=== PATIENT | male | born 1965 | race Caucasian/White ===

== ENCOUNTER 2023-11-25 07:32 | Day surgery (SDC) | payer BC ==
[~2023-11-25] VITALS: Ht 177.8 cm; Wt 103.9 kg
[2023-11-25] MEDS ORDERED: NEXIUM 20MG20 MG PO (08:23)
[2023-11-25 09:35] VITALS: BP 126/85; PULSE 66; TEMP 96.8
[2023-11-25 09:45] VITALS: BP 130/74; PULSE 72
[2023-11-25 10:00] VITALS: BP 152/93; PULSE 72
--- NOTE | 2023-11-25 10:16 | NUR ---
0935- PATIENT RETURNS TO [facility] [place] [facility] VIA CART. PT AWAKE AND ALERT. RESPIRATIONS UNLABORED. AMBULATED TO RECLINER CHAIR WITH 2:1 SBA. PT DENIES NAUSEA OR ABDOMINAL PAIN. HOOKED UP TO MONITOR AND VS OBTAINED. CALL LIGHT AT SIDE. 0944- PATIENT TOLERATING COFFEE AND MUFFIN WITHOUT NAUSEA OR DIFFICULTY SWALLOWING. 0954- D/C INSTRUCTIONS REVIEWED WITH PATIENT. PT VERBALIZED UNDERSTANDING AND A COPY OF INSTRUCTIONS PROVIDED IN D/C FOLDER. 0957- DR. MALDONADO IN ROOM SPEAKING WITH PATIENT. 1002- PATIENT DRESSES SELF. 1016- PATIENT DISCHARGED FROM UNIT VIA W/C TO A PERSONAL VEHICLE. PT LEFT HOSPITAL IN STABLE CONDITION.
[2023-11-25 11:35] VITALS: BP 136/94; PULSE 77; TEMP 97.2
--- NOTE | 2023-11-25 11:39 | NUR ---
0814 Pt ambulatory to [facility] w/ a steady gait, breathing even and unlabored. Pt is alert and oriented. Consents reviewed w/ and signed by pt. IV established. LR infusing via gravity. Call light in reach. Warm blanket provided.
== END 2023-11-25 10:16 | disposition home or self-care (01) ==
LOC: SDCO 07:32
DX: K22.70 Barrett's esophagus without dysplasia (principal); K21.9 Gastro-esophageal reflux disease without esophagitis; K44.9 Diaphragmatic hernia without obstruction or gangrene; Z87.891 Personal history of nicotine dependence
CPT/HCPCS: J2704; J7120